=== PATIENT | female | born 1945 | race Caucasian/White ===

== ENCOUNTER → 2024-11-10 | Outpatient (CLI) | payer MEDICARE, SELFPAY ==
[2024-11-10 16:09] LABS: Absolute Lymphocyte Count 1.72 X10^3/uL (0.83-4.51); Absolute Neutrophil Count 4.2 X10^3/uL (2.0-7.7); Basophil# 0.04 X10^3/uL; Basophil% 0.6 % (0-1); Eosinophil# 0.11 X10^3/uL; Eosinophils% 1.7 % (0-5); Hematocrit 40.8 % (37-47); Hemoglobin 13.4 g/dL (12.0-15.0); Lymphocyte # 1.72 X10^3/ul (0.83-4.51); Lymphocyte % 26.1 % (19-41); Mean Corp Hgb Conc 32.8 g/dL (32-36); Mean Corpuscular Volume 100.5 fL (81-99); Mean Platelet Vol. 9.9 fl (6.2-12.0); Monocyte# 0.52 X10^3/uL; Monocyte% 7.9 % (0-10); NRBC Flagged by Analyzer 0 % (0-5); Neutrophil # 4.17 X10^3/uL (2.7-7.7); Neutrophil % 63.4 % (47-70); Platelet Count 279 K/mm3 (150-450); RBC Distribution Width CV 12.2 % (11.6-14.6); RBC Distribution Width SD 45.6 fl (35.1-43.9); Red Blood Count 4.06 M/mm3 (4.2-5.4); White Blood Count 6.6 K/mm3 (4.4-11.0)
[2024-11-10 17:02] LABS: ALB/GLOB Ratio 1.6 RATIO (0.9-2.4); AST(SGOT) 30 U/L (<=31); Alanine Aminotransfer ALT/SGPT 26 U/L (<=34); Albumin, Serum 4.3 g/dL (3.4-4.8); Alkaline Phosphatase 104 U/L (35-104); Anion Gap 10 (5-15); BUN 10 mg/dL (4-19); BUN/Creat Ratio 13.2 RATIO (10-20); Calcium,Total 9.7 mg/dL (7.6-11.0); Chloride 102 mmol/L (98-108); Creatinine, Serum 0.76 mg/dL (0.70-1.20); EST Glomerular Filtration Rate 80 (>60); Globulin 2.6 g/dL (2.2-4.2); Glucose 104 mg/dL (70-99); Hepatitis C Antibody Nonreactive (Nonreactive); Potassium 4.2 mmol/L (3.3-5.1); Protein, Total 6.9 g/dL (5.9-8.4); Sodium Level 140 mmol/L (133-145); Thyroid Stim Hormone (TSH) 0.747 uIU/mL (0.300-4.200); Total Bilirubin 0.31 mg/dL (0.00-1.30); Vitamin D,25 Hydroxy 40.4 ng/mL (30-100)
== END | disposition home or self-care (01) ==
PROVIDERS: PCP Family Medicine Geriatric Medicine; Referring Provider Family Medicine Geriatric Medicine; Visit Provider Family Medicine Geriatric Medicine
DX: Z13.89 Encounter for screening for other disorder (principal); R10.9 Unspecified abdominal pain; R63.4 Abnormal weight loss; E55.9 Vitamin D deficiency, unspecified
CPT/HCPCS: 36415; 80053; 82306; 84443; 85025; 86803; 87086

== ENCOUNTER 2024-11-12 14:52 | Outpatient (CLI) | payer MEDICARE, SELFPAY | END 2024-11-12 23:59 | disposition home or self-care (01) | LOC: LABSPEC 14:53 | PROVIDERS: PCP Family Medicine Geriatric Medicine; Referring Provider Family Medicine Geriatric Medicine; Visit Provider Family Medicine Geriatric Medicine | DX: R10.9 Unspecified abdominal pain (principal); R63.4 Abnormal weight loss | CPT/HCPCS: 82274 ==

== ENCOUNTER → 2024-11-13 | Outpatient (CLI) | payer MEDICARE, SELFPAY ==
--- NOTE | 2024-11-13 10:20 | CT_ITS ---
PROCEDURE: CT CHEST, ABD, PEL W/CONTRAST 11/13/2024 REASON FOR EXAM: WEIGHT LOSS, ABD PAIN TECHNIQUE: Chest, abdomen and pelvis CT with intravenous and oral contrast. Coronal and Sagittal reconstruction series were provided. One or more dose reduction techniques were used (e.g., Automated exposure control, adjustment of the mA and/or kV according to patient size, use of iterative reconstruction technique. PATIENT PREPARATION: Per protocol CONTRAST: 75 mL [id number] RADIATION DOSE SUMMARY: CTDlvol: 15.2 mGy DLP: 434 mGycm COMPARISON: None FINDINGS: CT CHEST: Lymph nodes: Left paratracheal node measuring 1.7 cm in short axis (series 2, image 51). Heart and Vasculature: Cardiomegaly. Moderate coronary calcifications. Mild aortic atherosclerosis. Lungs and Airways: Central airways are predominantly clear. There is mucous plugging in the distal airways of the right lower lobe. There is nodular consolidation at the right lung apex measuring 2.1 x 1.2 cm (series 2, image 11). Solid nodule in the right upper lobe measuring 3 mm (image 43) Pleura: No effusion Bones: Degenerative changes of the thoracic spine. CT ABDOMEN/PELVIS: Liver: There is a subcentimeter hyperdensity at the right hepatic dome seen only on the arterial phase, likely a flash filling hemangioma. Gallbladder: Unremarkable Spleen: Normal size. Pancreas: Normal size without evidence of mass surrounding inflammation or ductal dilation. Adrenals: Unremarkable Kidneys: No hydronephrosis or stone. There are extrarenal pelvises bilaterally. Simple cyst at the lower pole of the right kidney. Bladder: Unremarkable Reproductive Organs: Cystic lesion near the left adnexa measuring 2.0 cm (series 3, image 62), which does not require follow-up per ACR white paper guidelines. Bowel: Large colonic stool burden. No definite evidence for bowel obstruction or inflammation. Normal appendix. Lymph nodes: Cystic lesion in the right inguinal region measuring up to 2.2 cm in size. Vasculature: Mild diffuse atherosclerotic calcifications are noted. Bones: Degenerative changes and rightward curvature of the spine. Grade 1 anterolisthesis of L4 on L5. Abdominal wall: Left gluteal calcifications. CT/CT Chest, Abd, Pel w/Contrast IMPRESSION: CT chest: 1. Nodular consolidation at the right lung apex measuring 2.1 x 1.2 cm, favore d to represent scarring or atelectasis, with neoplasm less likely. Recommend repeat CT in 3 months to assess stability. 2. Mucous plugging in the distal airways of the right lower lobe. 3. Mild mediastinal lymphadenopathy. Recommend attention on future exam. 4. Cardiomegaly with moderate coronary calcifications. CT abdomen and pelvis: 1. No suspicious findings in the abdomen or pelvis. 2. Cystic lesion in the right inguinal soft tissues measuring 2.2 cm, which co uld represent a canal of Nuck cyst. 3. Large colonic stool burden, suggestive of constipation. Reading Location: [id number]
== END | disposition home or self-care (01) ==
LOC: CT 09:41
PROVIDERS: PCP Family Medicine Geriatric Medicine; Referring Provider Family Medicine Geriatric Medicine; Visit Provider Family Medicine Geriatric Medicine
DX: R10.9 Unspecified abdominal pain (principal); R63.4 Abnormal weight loss
CPT/HCPCS: 71260; 74177; Q9967

== ENCOUNTER → 2025-01-29 | Outpatient (CLI) | payer MEDICARE, SELFPAY ==
--- NOTE | 2025-01-29 13:52 | CT_ITS ---
PROCEDURE: CHEST WITHOUT CONTRAST 01/29/2025 REASON FOR EXAM: NODULE OF APEX RIGHT LUNG Atypical chest pain TECHNIQUE: Chest CT without contrast. Coronal and Sagittal reconstruction series were provided. One or more dose reduction techniques were used (e.g., Automated exposure control, adjustment of the mA and/or kV according to patient size, use of iterative reconstruction technique RADIATION DOSE SUMMARY: CTDlvol: 6.07 mGy DLP: 239.61 mGycm COMPARISON: 11/13/2024 FINDINGS: Lung windows show stable likely fibrotic scar in the right apex again measuring a proximally 2 point 1 x 1.2 cm. There is some associated fibrotic change in the right upper lobe as well. There is a stable separate 3 mm noncalcified nodule in the right upper lobe on axial image 19. Stable nonspecific pleural thickening in both hemithoraces. Stable evidence of chronic bronchitis with stable bronchiectatic changes in the right middle lobe. No organized infiltrate, effusion, or suspicious new noncalcified mass or nodule. The soft tissue windows show a normal-appearing thyroid gland. No suspicious axillary, mediastinal or perihilar adenopathy. The thoracic aorta tapers normally. There are calcified coronary vessels. Limited cuts through the upper abdomen do not show a suspicious abnormality. Stable simple cortical cyst in the right kidney. Bony structures show degenerative change CT/Chest without Contrast IMPRESSION: Coronary artery calcification (CAC) is is present Underlying emphysema with stable fibrotic scarring and noncalcified nodule in t he right upper lobe. Another six-month follow-up is recommended to assess stability Stable nonspecific pleural thickening in both hemithoraces, persistent evidence of chronic bronchitis. No superimposed infiltrate or effusion No suspicious adenopathy Degenerative bony change Reading Location: [id number]
== END | disposition home or self-care (01) ==
LOC: CT 13:50
PROVIDERS: PCP Family Medicine Geriatric Medicine; Referring Provider Family Medicine Geriatric Medicine; Visit Provider Family Medicine Geriatric Medicine
DX: R91.1 Solitary pulmonary nodule (principal)
CPT/HCPCS: 71250